=== PATIENT | female | born 1970 | race Caucasian/White ===

== ENCOUNTER 2017-07-02 18:06 | Emergency (ER) | payer SELFPAY ==
[2017-07-02 18:48] LABS: #Basophils 0.1 thou/uL (0.0-0.2); #Eosinphils 1.4 thou/uL (0.0-0.7); #Lymphocytes 2.6 thou/uL (1.20-3.40); #Monocytes 0.5 thou/uL (0.11-0.59); #Neutrophils 4.7 thou/uL (1.40-6.50); %Basophils 0.9 % (0.0-1.0); %Lymphocytes 28.2 % (21.0-51.0); %Monocytes 5.2 % (0.0-10.0); Hematocrit 37.8 % (36.0-47.0); Mean Platelet Volume 8.3 fL (7.4-10.4); Red Blood Cell (RBC) Count 4.98 mill/uL (4.20-5.40); White Blood Cell (WBC) Count 9.3 thou/uL (4.8-10.8)
[2017-07-02] MEDS ORDERED: Lorazepam 2 MG/ML VIAL ONE (18:57)
[2017-07-02 18:59] LABS: ALT (SGPT) 12 U/L (8-55); AST (SGOT) 17 U/L (5-34); Alkaline Phosphatase 97 U/L (40-150); Anion Gap 15 mmol/L (10-20); BUN (Urea Nitrogen) 11 mg/dL (7.0-18.7); Bilirubin, Total 0.3 mg/dL (0.2-1.2); Calc. Creatinine Clearance 0 mL/min (70-130); Calcium 8.8 mg/dL (7.8-10.44); Carbon Dioxide 18 mmol/L (22-29); Chloride 108 mmol/L (98-107); Estimated GFR-MDRD 89; Globulin 3.5 g/dL (2.4-3.5); Lipase 52 U/L (8-78); Protein, Total 7.5 g/dL (6.0-8.3)
[2017-07-02 19:03] LABS: Troponin I Less than 0.010 ng/mL (< 0.028)
[2017-07-02] MEDS ORDERED: predniSONE 20 MG TAB ONE (20:08)
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
== END 2017-07-02 21:06 | disposition home or self-care (01) ==
LOC: ERS 18:06
DX: J98.01 Acute bronchospasm (principal); F41.9 Anxiety disorder, unspecified; F31.9 Bipolar disorder, unspecified
CPT/HCPCS: 71010; 80053; 82553; 83690; 84484; 85025; 93005; 94760; 96372; J2060; J7506

== ENCOUNTER 2017-11-03 12:43 | Emergency (ER) | payer SELFPAY ==
--- NOTE | 2017-11-03 13:35 | RAD ---
PA AND LATERAL VIEWS OF THE CHEST: HISTORY: Dyspnea, audible wheezing, body ache, headache, fever. FINDINGS: The cardiomediastinum is normal. The lungs are expanded without focal areas of consolidation, pneumo thorax, or pleural effusions. No acute osseous abnormalities are seen. IMPRESSION: No radiographic evidence of acute cardiopulmonary process. POS: [facility]
[2017-11-03] MEDS ORDERED: Dexamethasone 4 MG TAB ONE (13:38)
[2017-11-03] MEDS ORDERED: Ketorolac Tromethamine 60 MG/2 ML VIAL ONE (13:38)
[2017-11-03] MEDS ORDERED: cefTRIAXone\\ROCEPHIN 500 MG VIAL ONE (16:26)
[2017-11-03] MEDS ORDERED: Lidocaine 1% PF 5 ML VIAL ONE (16:27)
[2017-11-03] MEDS ORDERED: Acetaminophen 500 MG TAB ONE (16:27)
--- NOTE | 2017-11-07 12:25 | EKG ---
Test Reason : Blood Pressure : / mmHG Vent. Rate : 092 BPM Atrial Rate : 092 BPM P-R Int : 144 ms QRS Dur : 086 ms QT Int : 374 ms P-R-T Axes : 071 046 062 degrees QTc Int : 462 ms Normal sinus rhythm Prolonged QT Abnormal ECG Confirmed by JAMILA Arango, LUCAS ([id number]), avid editor ASHLEY SELF ([id number]) on 11/07/2017 12:25:18 PM Referred By: JAMILA Confirmed By:LUCAS MARINO M.D.
== END 2017-11-03 17:36 | disposition home or self-care (01) ==
LOC: ERS 12:43
DX: R06.2 Wheezing (principal); R50.9 Fever, unspecified; E11.9 Type 2 diabetes mellitus without complications; F31.9 Bipolar disorder, unspecified
CPT/HCPCS: 71046; 93005; 94640; 94760; 96372; J0696; J1885; J2001; J7620; J8540

== ENCOUNTER 2022-03-21 13:57 | Outpatient (CLI) | payer OTHER | END 2022-03-21 13:58 | disposition home or self-care (01) | LOC: BICMAMMO 13:57 | PROVIDERS: ATTEND Family Medicine | DX: Z12.31 Encounter for screening mammogram for malignant neoplasm of breast (principal); I10 Essential (primary) hypertension; Z85.41 Personal history of malignant neoplasm of cervix uteri; Z98.82 Breast implant status | CPT/HCPCS: 71045; 77063; 77067 ==

== ENCOUNTER 2022-12-26 18:42 | Emergency (ER) | payer OTHER, SELFPAY ==
[2022-12-26 19:11] LABS: Bilirubin Negative (Negative); Blood, Urine Negative (Negative); Clarity Clear (Clear); Glucose, Urine (Dipstick) Normal (Negative); Ketone, Urine Negative (Negative); Leukocyte Negative Leu/uL (Negative); Nitrite Negative (Negative); Protein, Urine (Dipstick) Negative (Neg-Trace); Specific Gravity, Urine 1.021 (1.002-1.036); Urobilinogen Normal mg/dL (Less than 2)
[2022-12-26 22:18] LABS: #Basophils 0.1 thou/uL (0.0-0.2); #Eosinphils 0.8 thou/uL (0.0-0.7); #Lymphocytes 2.5 thou/uL (1.20-3.40); #Monocytes 0.3 thou/uL (0.11-0.59); #Neutrophils 2.5 thou/uL (1.40-6.50); %Basophils 1.3 % (0.0-1.0); %Eosinophils 12.7 % (0.0-10.0); %Lymphocytes 41.2 % (21.0-51.0); %Monocytes 4.1 % (0.0-10.0); %Neutrophils 40.7 % (42.0-75.0); Hemoglobin 16.2 g/dL (12.0-16.0); Mean Corpuscular HGB CONC 33.8 g/dL (32.0-36.0); Mean Corpuscular Hemoglobin 32.2 pg (27.0-31.0); Mean Corpuscular Volume 95.2 fl (78.0-98.0); Mean Platelet Volume 7.3 fL (7.4-10.4); Platelet Count 292 10x3/uL (130-400); RBC Distribution Width 11.5 % (11.5-14.5); Red Blood Cell (RBC) Count 5.04 mill/uL (4.20-5.40); White Blood Cell (WBC) Count 6.1 10x3/uL (4.8-10.8)
[2022-12-26 22:40] LABS: ALT (SGPT) 15 U/L (8-55); AST (SGOT) 18 U/L (5-34); Albumin 3.8 g/dL (3.5-5.0); Alkaline Phosphatase 89 U/L (40-110); Anion Gap 16 mmol/L (10-20); BUN (Urea Nitrogen) 12 mg/dL (9.8-20.1); Bilirubin, Total 0.3 mg/dL (0.2-1.2); Calc. Creatinine Clearance 0 mL/min (70-130); Calcium 9.2 mg/dL (7.8-10.44); Carbon Dioxide 21 mmol/L (22-29); Chloride 108 mmol/L (98-107); Estimated GFR 106; Globulin 3.3 g/dL (2.4-3.5); Glucose 85 mg/dL (70-105); Potassium 3.9 mmol/L (3.5-5.1); Protein, Total 7.1 g/dL (6.0-8.3); Sodium 141 mmol/L (136-145)
== END 2022-12-26 23:39 ==
LOC: ERS 18:42
DX: N93.9 Abnormal uterine and vaginal bleeding, unspecified (principal); F41.9 Anxiety disorder, unspecified; E11.649 Type 2 diabetes mellitus with hypoglycemia without coma; M32.9 Systemic lupus erythematosus, unspecified
CPT/HCPCS: 36415; 80053; 81003; 85025; 99284